=== PATIENT | female | born 1985 | race Caucasian/White ===

== ENCOUNTER → 2019-07-01 17:24 | Observation (INO) ==
[2019-07-01 16:22] VITALS: BP 136/72
[2019-07-01 16:27] LABS: Bilirubin,Urine Negative (Negative); Blood,Urine Negative (Negative); Clarity,Urine Clear (Clear); Color,Urine Yellow (Yellow); Glucose,Urine (UA) Normal (Normal); Ketones,Urine Negative (Negative); Leukocyte Esterase,Urine Negative (Negative); Nitrite,Urine Negative (Negative); Protein,Urine Negative (Neg-Trace); Specific Gravity,Urine 1.017 (1.010-1.025); Urobilinogen,Urine Normal (Normal)
[2019-07-01 16:32] LABS: Amphetamine Screen,Urine Negative ng/mL (Cutoff=1000); Barbiturate Screen,Urine Negative ng/mL (Cutoff=200); Benzodiazepines Screen,Urine Negative ng/mL (Cutoff=200); Cannabinoid Screen,Urine Negative ng/mL (Cutoff = 50); Cocaine Screen,Urine Negative ng/mL (Cutoff= 300); Opiate Screen,Urine Negative ng/mL (Cutoff=300); Phencyclidine Screen,Urine Negative ng/mL (Cutoff=25)
== END | disposition home or self-care (01) ==
LOC: 1NENULAB
PROVIDERS: ADMIT Advanced Practice Midwife; ATTEND Advanced Practice Midwife

== ENCOUNTER → 2019-09-29 08:00 | Observation (INO) ==
[~2019-09-29 08:00] MED LIST: Ringers Solution, Lactated 1,000 ML IVC ONE; Ringers Solution, Lactated 1,000 ML ONE
== END | disposition home or self-care (01) ==
LOC: 1NENULAB
PROVIDERS: ADMIT Advanced Practice Midwife; ATTEND Advanced Practice Midwife

== ENCOUNTER 2019-09-29 22:25 | Observation (INO) ==
[2019-09-29 22:32] VITALS: BP 140/80
[2019-09-29] MEDS ORDERED: hydrOXYzine pamoate 25 MG CAPSULE PO ONE (23:38)
== END 2019-09-30 00:05 | disposition home or self-care (01) ==
LOC: 1NENULAB
PROVIDERS: ADMIT Advanced Practice Midwife; ATTEND Advanced Practice Midwife

== ENCOUNTER 2019-10-01 08:39 | Inpatient (IN) ==
[2019-10-01] MEDS: Ringers Solution, Lactated 1,000 ML IVC SCH ×3 (08:24→13:27)
[~2019-10-01 08:39] MED LIST changes: +*HR* FentaNYL (PF) 100 MCG/2 ML VIAL IVP PRN; +Famotidine 20 MG/2 ML VIAL IVP PRN; +Metoclopramide 10 MG/2 ML VIAL IVP PRN; +Naloxone 0.4 MG/ML INJ IVP PRN; -Ringers Solution, Lactated 1,000 ML IVC ONE
[2019-10-01] MEDS ORDERED: 0.9 % Sodium Chloride 1,000 ML ONE (09:05)
[2019-10-01] MEDS ORDERED: Naloxone 0.4 MG/ML INJ IVP PRN (09:09)
[2019-10-01] MEDS ORDERED: 0.9 % Sodium Chloride 500 ML IVC PRN (09:09)
[2019-10-01] MEDS ORDERED: Epidural Premix (fent/bupiv) 110 ML EP SCH (09:15)
[2019-10-01] MEDS ORDERED: Epidural Premix (fent/bupiv) 110 ML EP ONE (09:19)
[2019-10-01 09:49] LABS: Amphetamine Screen,Urine Negative ng/mL (Cutoff=1000); Barbiturate Screen,Urine Negative ng/mL (Cutoff=200); Benzodiazepines Screen,Urine Negative ng/mL (Cutoff=200); Cannabinoid Screen,Urine Negative ng/mL (Cutoff = 50); Cocaine Screen,Urine Negative ng/mL (Cutoff= 300); Opiate Screen,Urine Negative ng/mL (Cutoff=300); Phencyclidine Screen,Urine Negative ng/mL (Cutoff=25)
[2019-10-01 10:14] LABS: Hematocrit 38.8 % (35.3-44.9); Mean Corpuscular HGB Conc 33.5 g/dL (31.6-35.5); Mean Corpuscular Volume 89.4 fL (83.0-100.0); Mean Platelet Volume 10.4 fL (9.4-12.4); Platelet Count 447 K/mcL (140-400); Red Blood Count 4.34 M/mcL (3.82-4.97); Red Cell Distribution Width 13.2 % (11.5-14.5); White Blood Count 15.4 K/mcL (4.3-11.1)
[2019-10-01 10:16] LABS: Lymphocytes # 2.2 K/mcL (0.6-4.6); Monocytes # 0.6 K/mcL (0.0-1.3); Neutrophils # 12.6 K/mcL (1.6-8.9); Reactive Lymphocytes Present (Not Present)
[2019-10-01] MEDS ORDERED: *HR* FentaNYL (PF) 100 MCG/2 ML VIAL ONE (11:49)
[2019-10-01] MEDS ORDERED: Bupivacaine-MPF 0.25% 10 ML VIAL ONE (11:49)
[2019-10-01] MEDS: Epidural Premix (fent/bupiv) 110 ML EP SCH ×2 (13:24→14:28)
[2019-10-01] MEDS ORDERED: Oxytocin 20 units/ LR 1000 mL 20 UNIT/1,000 ML BAG IVC ONE (15:15)
[2019-10-01 15:23] LABS: Cord Venous Blood HCO3 21 mEq/L; Cord Venous Blood PCO2 44 mmHg (27-42); Cord Venous Blood PO2 19 mmHg (15-45)
[2019-10-01 15:29] LABS: Cord Arterial Blood HCO3 15 mEq/L; Cord Arterial Blood Oxygen Sat 44 %
[2019-10-01] MEDS ORDERED: Benzocaine/Menthol 56 GM AEROSOL SPRAY TP PRN (17:54)
[2019-10-01] MEDS ORDERED: Oxytocin 20 units/ LR 1000 mL 20 UNIT/1,000 ML BAG IVC SCH (17:54)
[2019-10-01] MEDS ORDERED: Lanolin 7 G OINT...G. TP PRN (17:54)
[2019-10-01] MEDS ORDERED: Acetaminophen 325 MG TABLET PO PRN (17:54)
[2019-10-01] MEDS ORDERED: *HR* HYDROcodone/Acet 5/325 mg TABLET PO PRN (17:54)
[2019-10-01] MEDS: Ibuprofen 600 MG TABLET PO PRN (18:35)
[2019-10-02 06:00] LABS: Basophils % 0.1 %; Eosinophils % 0.1 %; Hematocrit 28.1 % (35.3-44.9); Immature Granulocytes % 0.4 % (0-4); Lymphocytes # 1.9 K/mcL (0.6-4.6); Mean Corpuscular HGB Conc 33.1 g/dL (31.6-35.5); Mean Corpuscular Hemoglobin 30.6 pg (28.0-33.3); Mean Corpuscular Volume 92.4 fL (83.0-100.0); Mean Platelet Volume 9.4 fL (9.4-12.4); Monocytes % 7.8 %; Neutrophils # 9.7 K/mcL (1.6-8.9); Platelet Count 269 K/mcL (140-400); Red Blood Count 3.04 M/mcL (3.82-4.97); Red Cell Distribution Width 13.5 % (11.5-14.5); Segmented Neutrophils % 76.6 %; White Blood Count 12.6 K/mcL (4.3-11.1)
[2019-10-02 06:01] LABS: Hemoglobin 9.3 g/dL (11.5-15.4)
[2019-10-02] MEDS: Ibuprofen 600 MG TABLET PO PRN (06:16)
[2019-10-02 07:45] VITALS: BP 121/80
[2019-10-02] MEDS ORDERED: Prenatal Vit/FA 1 EACH TABLET PO SCH (09:00)
== END 2019-10-02 16:45 | disposition home or self-care (01) | DRG 560 ==
LOC: 1NENULAB → 1NENUOBS 17:50
PROVIDERS: ADMIT Registered Nurse; ATTEND Registered Nurse